=== PATIENT | male | born 1995 | race Caucasian/White ===

== ENCOUNTER 2024-06-03 09:20 | Outpatient (AMB) | payer OTHER, SELFPAY ==
[2024-06-03 09:24] VITALS: BP 114/80; PULSE 74; O2SAT 98; BMI 27.5
--- NOTE | 2024-06-03 09:24 | MHC.PC.OV ---
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 Accompanied by: Self / Same As Patient Allergies No Known Allergies Allergy (Verified 06/03/24 10:01) Medication List - Last Reconciled 06/03/24 by LENNY Ness No Known Home Meds Tobacco use date assessed: 06/03/24 Dental Screening Dental Screen Date: 06/03/24 Did you have a dental visit in the last 12 months?: No Did you have a dental problem in the last 6 months where you did not have access to dental care?: No Was dental information given to patient?: Patient has dentist HPI ROOMS DIRECTOR // PE Request HPI Details Previous PCP: Kathryn at office in [facility] Last visit: long time Last PE: long time Specialist: used to see ENT, cardiology OBGYN: n/a Past medical history: chronic ear infection-used to have ear tubes, but not sure if they fell out or not, Heart murmur-reports that this runs in the family, his mother and first cousin both have heart murmur, cleft palate, hx of hernia when he was born (he just has a scar now) Medications: Family HX: Parkinson paternal grandfather, maternal grandfather passed a way from pancreatic ca, heart murmur maternal grandfather Problem: Patient reports that he thinks that his regular headaches are turning into migraines He thinks that his headache is causing him to have a nosebleed intermittently Patient also reports that his headaches are stress related, usually the pain is on both side of his forehead Reports that this pain could linger throughout the day and goes away when things are calm down He reports that it does not affect his eyesight, but he recalls once the headache was so bad that it felt like the room was spinning He denies nausea, vomiting, photophobia or phonophobia The patient denies any treatment, except relaxation The patient was encouraged to try ibuprofen 800 mg p.r.n. but he was cautioned in doing so due to his reported intermittent nosebleeds. 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 the foundation of his stress Discussed with patient about talking to someone a about his increased stress-reports that he has been dealing with this on his own and he is not quite sure about talking to anyone just yet Tightening in his chest area, chest feels heavy, this happen about a month ago, reports that he was not stressed at the time, this went away briefly He also reports mild difficulty in breathing during the moment Denies heart palpitation, lightheadedness, nausea or vomiting, radiation of pain, or diaphoresis-we will get a EKG for baseline/further evaluate Works at a dog [email or web address]: shooting pain from wrist area to fingers, negative tinel and phalen exam, his hands get exhausted at the end of the day. The patient reports that he would like to deal with this has a naturally as possible and is not inclined for any surgical intervention at this time. We will get a EMG/NCS to further evaluate [facility] Medical History (Updated 06/04/24 @ 23:19 by LENNY Ness) Chronic ear infection Abdominal hernia Cleft palate Heart murmur Surgical History (Updated 06/04/24 @ 14:32 by LENNY Ness) History of placement of ear tubes Family History (Updated 06/04/24 @ 23:16 by LENNY Ness) Paternal Grandfather Parkinsons disease Maternal Grandfather Pancreatic cancer Heart murmur Social History Housing: House Patient Tobacco Use Status: Current someday Tobacco user e-Cigarette/Vaping Use: Never Used Second Hand Smoke Exposure: Yes service: No Current occupational status: employed Current occupational exposures/hazards: No Cognitive needs: No Hearing needs: No Vision needs: No Questionnaire PHQ-9 Over the last 2 weeks, how often have you been bothered by any of the following problems? 1. Little interest or pleasure in doing things: several days 2. Feeling down, depressed, or hopeless: not at all 3. Trouble falling or staying asleep, or sleeping too much: not at all 4. Feeling tired or having little energy: several days 5. Poor appetite or overeating: several days 6. Feeling bad about yourself - or that you are a failure or have let yourself or your family down: several days 7. Trouble concentrating on things, such as reading the newspaper or watching television: not at all 8. Moving or speaking so slowly that other people could have noticed. Or the opposite - being so fidgety or restless that you have been moving around a lot more than usual: not at all 9. Thoughts that you would be better off or of hurting yourself in some way: not at all Total score: 4 Depression Screening Interpretation: Positive Depression Screening Done: Yes 67676 - PHQ-9 Billing: Yes Source: Developed by Drs. Lucio Joseph, Jodie Nichole, Kirk Nelson and colleagues, with an educational yannick from [employer]. Thrive Questionnaire Date Thrive assessed: 06/03/24 I am a: Patient What is your living situation today?: I have a steady place to live Within the past 12 months, did the food you bought not last and you didn't have the money to get more?: Never true Within the past 12 months, did you worry whether your food would run out before you got money to buy more?: Never true Do you have trouble paying for medicines?: No Do you have trouble getting transportation to medical appointments?: No Do you have trouble paying your heating and electricity bill?: No Do you have trouble taking care of your child, family member or friend?: No Do you have trouble with day-to-day activities such as bathing, preparing meals, shopping, managing finances, etc.?: No Are you currently unemployed and looking for a job?: No Are you interested in more education?: No Please select the resources that you would like help with: None Currently or been in a relationship where the following occur: No concerns reported THRIVE Score: 0 AUDIT C Alcohol Use Questionnaire (AUDIT-C) 1. How often do you have a drink containing alcohol?: Monthly or less 2. How many drinks containing alcohol do you have on a typical day when you are drinking?: 1 or 2 3. How often do you have six or more drinks on one occasion?: Never Total Score: 1 PATRICK-7 AMB Questionnaire PATRICK-7 Date PATRICK - 7 assessed: 06/03/24 Feeling nervous, anxious, or on edge: 1 = Several days Not being able to stop or control worryin = Not at all Worrying too much about different things: 1 = Several days Trouble relaxin = Several days Being so restless that it is hard to sit still: 0 = Not at all Becoming easily annoyed or irritable: 1 = Several days Feeling afraid as if something awful might happen: 0 = Not at all Total PATRICK-7 score (0-4 normal; 5-9 mild; 10-14 moderate; 15-21 severe): 4 Source: Developed by Drs. Lucio Joseph, Jodie Nichole, Kirk Nelson and colleagues, with an educational yannick from [employer]. PATRICK-7 Assessment Billing PATRICK-7 Assessment Tool: PATRICK-7 Assessment 36394 Review of Systems Const Reports headache(s) Eyes Denies loss of vision ENT Denies vertigo, Denies dizziness, Reports headache(s) and Denies sore throat Card Reports chest pain (reports that it is more light chest tightness), Denies leg edema, Denies lightheadedness and Reports other (reports hx of heart murmur) Resp Denies cough, Denies hemoptysis and Denies wheezing GI Denies abdominal pain, Denies melena, Denies constipation, Denies diarrhea, Reports nausea (intermittently dry heaving until vomiting bile at times) and Reports vomiting (infrequently when he is stressed out) Denies dysuria, Denies urinary frequency and Denies urinary urgency Musc Denies arthralgias, Denies joint swelling, Denies numbness, Denies tingling and Reports other (reports shooting pain from wrist to finger of both hands) Neuro Denies Abnormal speech present, Denies behavioral changes, Denies vertigo, Denies dizziness, Reports headache(s), Denies loss of vision, Denies memory loss, Denies numbness and Denies tingling Psych Reports anxiety (reports that the stress cause him to dry hive and vomit intermittently), Denies behavioral changes, Denies depression, Denies memory loss, Reports panic attacks (reports that he is not sure if it panic attacks ) and Reports other Chi/Lymph Denies easy bleeding and Denies easy bruising Aller/Immun Denies wheezing Physical exam (Primary Care) Vital Signs: Last Vital Signs Pulse 74 06/03/24 09:24 BP 114/80 06/03/24 09:24 Pulse Ox 98 06/03/24 09:24 Oxygen Delivery Method Room Air 06/03/24 09:24 BMI result Body Mass Index 27.5 Tobacco/Smoking Status: Tobacco use Status Tobacco use date assessed 06/03/24 06/03/24 09:31 Patient Tobacco Use Status Current someday Tobacco 06/03/24 09:31 e-Cigarette/Vaping Use Never Used 06/03/24 09:31 PHQ-9: PHQ-9 Score PHQ-9: Total score 4 06/04/24 23:04 Depression Screening Interpretation: Positive Thrive Assessment: Date of Thrive Assessment Date Thrive assessed 06/03/24 06/03/24 09:31 Currently or been in a relationship where the following occur: No concerns reported Const General: healthy appearing, no acute distress, alert and awake Nutritional Appearance: well nourished Orientation/consciousness: oriented to person, oriented to place and oriented to time HENMT Ears: TM's normal bilaterally General nose exam: Normal nasal mucous membranes and turbinates present Eyes Conjunctivae: conjunctivae normal Sclerae: sclerae normal Pupils: Equal, round and reactive pupils present Neck Neck: Yes no lymphadenopathy and Yes no JVD Thyroid: Thyroid normal Carotids: no bruits Chest Chest palpation & inspection: normal inspection of the chest Resp Effort & Inspection: normal respiratory effort and not tachypneic Auscultation: no crackles, no rales, no rhonchi and no wheezes Cardio Rate: regular rate Rhythm: regular rhythm Heart sounds: Murmur heart sound present (soft) systolic and normal S1 and S2 GI Palpation (GI): Soft to palpation, nontender, no hepatomegaly and no splenomegaly Auscultation: normal bowel sounds Skin General skin exam: no rashes or lesions noted and dry skin Neuro General: oriented to person, oriented to place and oriented to time Cranial nerves: Yes Equal, round and reactive pupils present Speech: No Abnormal speech present Gait exam (Neuro): Normal gait present Motor exam (neuro): no tremor noted Extrem Right upper extremity: full ROM Left upper extremity: full ROM Right lower extremity: full ROM; no edema Left lower extremity: full ROM; no edema Psych Mental Status: mental status grossly normal Speech and movement: Normal speech and movement present Affect: normal affect Attitude: cooperative Thought process: Normal thought process present Coding Level of Care Code New Pt Level 4 (40614) Diagnoses Heart murmur R01.1 Pain in both hands M79.641; M79.642 Laterality: bilateral Feeling stressed out F43.9 Additional Codes PHQ-9 - 86306 - PHQ-9 Billing: Yes ([id number]) PATRICK-7 Assessment Billing - PATRICK-7 Assessment Tool: PATRICK-7 Assessment 18245 ([id number]) Time Spent (min) 42 Assessment & Plan Assessment & Plan (1) Heart murmur: Code(s): R01.1 - Cardiac murmur, unspecified Category: Medical Plan: Patient reports a history of heart murmur. Reports that his mother and 1st cousin has a murmur. He denies denies chest pain or heart palpitation. Will order an EKG for baseline and to further evaluate. (2) Pain in unspecified hand: Code(s): M79.643 - Pain in unspecified hand Category: Medical Qualifiers: Laterality: bilateral Qualified Code(s): M79.641 - Pain in right hand; M79.642 - Pain in left hand Plan: The patient reports shooting pain from bilateral wrist into fingers; into first two fingers and at times into the pinkies. He would like to deal with this as natural as possible, and his not interested into any surgical intervention at this time. Negative phalen and tinel tests on exam. 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 Reports that he worries about things going wrong throughout the day and usually feels better as the day progresses. However, he is not interested in speaking to anyone about this at this time. Orders: Orders Comprehensive [place]. Panel Fast 06/03/24 M79.2 - Neuralgia and neuritis, unspecified, R51.9 - Headache, unspecified, Z00.00 - Encounter for general adult medical examination without abnormal findings UA CC w/rflx Micro + Cult 06/03/24 M79.2 - Neuralgia and neuritis, unspecified, R51.9 - Headache, unspecified, Z00.00 - Encounter for general adult medical examination without abnormal findings Lipid Panel 06/03/24 M79.2 - Neuralgia and neuritis, unspecified, R51.9 - Headache, unspecified, Z00.00 - Encounter for general adult medical examination without abnormal findings Magnesium 06/03/24 M79.2 - Neuralgia and neuritis, unspecified, R51.9 - Headache, unspecified, Z00.00 - Encounter for general adult medical examination without abnormal findings Glucose Fasting 06/03/24 M79.2 - Neuralgia and neuritis, unspecified, R51.9 - Headache, unspecified, Z00.00 - Encounter for general adult medical examination without abnormal findings ECG 12 lead EKG 06/03/24 R07.89 - Other chest pain Complete Blood Count Auto Diff 06/03/24 M79.2 - Neuralgia and neuritis, unspecified, R51.9 - Headache, unspecified, Z00.00 - Encounter for general adult medical examination without abnormal findings Vitamin D 25-OH Total 06/03/24 M79.2 - Neuralgia and neuritis, unspecified, R51.9 - Headache, unspecified, Z00.00 - Encounter for general adult medical examination without abnormal findings TSH reflex Free T4 06/03/24 M79.2 - Neuralgia and neuritis, unspecified, R51.9 - Headache, unspecified, Z00.00 - Encounter for general adult medical examination without abnormal findings Vitamin B12 and Folate 06/03/24 M79.2 - Neuralgia and neuritis, unspecified, R51.9 - Headache, unspecified, Z00.00 - Encounter for general adult medical examination without abnormal findings NE nerve conduction velocity 06/04/24 M79.641 - Pain in right hand, M79.642 - Pain in left hand NE electromyogram (EMG) 06/04/24 M79.641 - Pain in right hand, M79.642 - Pain in left hand
--- OUTSIDE RECORDS SUMMARY | 2024-06-03 09:59 | XMS_ITS | Data Portability ---
Author Organization [facility] [id number] Address [address] [place] [address] Assessment No assessment recorded. Plan of Treatment Reminders Order Date Submit Date Provider Last Modified By Organization Details Last Modified Time Details Appointments None recorded. Lab None recorded. Referral None recorded. Procedures None recorded. Surgeries None recorded. Imaging None recorded. Medication Orders cephalexin 500 mg capsule 2023 024 [id number], [address] [place], [address], 4 10:51:39 Patient TargetsNo targets recorded. Patient InstructionsNo instructions recorded. Reason for Referral None Reported. Problems Name Problem SNOMED Code Status Onset Date Resolution Date Notes Provider Name and Address Organization Details Recorded Time Cellulitis of left forearm [id number] 9106 Active 2023 Huy Moise NP [address] , [place], [address] , [facility] 4 10:51:04 Problem Notes None recorded. Medical Equipment None Reported. Allergies No known drug allergies Medications Name Sig Start Date Stop Date Status Note LastModified by Organization Details LastModified Time cephalexin 500 mg capsule TAKE 1 CAPSULE BY MOUTH EVERY 8 HOURS WITH MEAL(S) FOR 7 DAYS, FOR SKIN INFECTION . active Not Available Not Available No t Available Vitals Date Recorded Body height Body mass index (BMI) Body weight Oxygen saturation Oxygen saturation in Arterial blood by Pulse oximetry Heart rate Body temperature Systolic blood pressure Diastolic blood pressure Provider Name and Address Organization Details Last Updated DateTime 4 187.96 cm 0.6 kg/m2 2267.96 g 100 % 100 % 68 /min 97.9 [degF] 127 mm[Hg] 77 mm[Hg] Kathy Lovelacen PA - [facility] 10:49:09 Social History Question Answer Notes LastModified by Organizat ion Details LastModified Time Are You Currently Employed? Yes Information not available 08/06/2023 Which Illicit Or Recreational Drugs Have You Used? Marijuana Information not available 08/06/2023 Have You Had A Flu Shot This Season? No Information no t available 08/06/2023 If No, Would You Like A Flu Shot Today? No Information not available 08/06/2023 Have You Had Direct Contact, Or Contact During Intimacy, With Monkeypox Rash, Scabs, Or Body Fluids From A Person With Monkeypox? No Information not available 08/06/2023 What Is Your Relationship Status? Single Information not available 08/06/2023 Do You Use Any Illicit Or Recreational Drugs? Yes Information not available 08/06/2023 Have You Recently Traveled Abroad? No Information not available 08/06/2023 Do You Or Have You Ever Used Any Other Forms Of Tobacco Or Nicotine? No Information not available 08/06/2023 Sex: Unknown Functional Status None recorded. Mental Status None recorded. Family History Nothing Reported. Medical History No medical history recorded. Past Encounters Encounter ID Performer Location Encounter Start Date Encounter Closed Date Diagnosis/Indication Diagnosis SNOMED-CT Code Diagnosis ICD10 Code Diagnosis Note [id number] [address] [address] 06/19/2020 08:18:18 06/19/2020 10:21:26 [id number] [address] 08/19/2016 18:30:01 08/19/2016 18:48:25 [id number] [place] [address] [address] 08/06/2023 10:24:21 08/06/2023 13:18:04 Cellulitis of left forearm [id number] L03.114 Based on your presentati on and exam today, I am diagnosing you with cellulitis . I am going to prescribe you and antibiotic to cover this infection. Please be sure to complete the full course of this antibiotic to prevent antibiotic resistance . I suggest with any antibiotic that you take Florastor or another probiotic. This help re-coloniz e you body with the good bacteria. It might take 3-4 days for the antibiotic to start working - so don't panic if your infection gradually worsens over the next 48 hours before it gets better. The following are my recommenda tions to help you feel better and aid in resolving this infection: 1. No creams or lotions on the affected area - so no Antibiotic ointment.2 . Warm Epsen Salt Soaks - 2 or 3 x daily. This will help move the infection to the surface of the skin.3. Take Ibuprofen or Tylenol if you do not have any allergies to these medication s. If you take a blood thinner you should not take NSAIDS like Ibuprofen. These medication will help with the inflammati on in your respirator y tract which should help the cough.4. Do no squeeze or pick at the area. This can worsen the infection. The following are warning signs to look out for that would suggest the infection is worsening. This would mean you should be seen again:1. Fever > 100.52. Redness is spreading to double the size in 24 hours3. Increased swelling and pain.4. Inability to move a joint5. Swollen lymph nodes that are tender Thank you for using [facility] today, please don't hesitate to call or reach out to us if you have any questions or concerns. Health Concerns Section Related Observation LastModified by Organization Detai ls LastModified Time None Recorded Concern Status LastModified by Organization Details LastModified Time None Recorded Advance Directives Directive None Recorded Payers Encounter Date Sequence Insurance Name Policy Number Policy Hopson Covered Member ID Hopson Member ID Guarantor Name 08/19/2016 1 [facility] [id number] Haresh Mayes [id number] Juan Luis Mayes 06/19/2020 1 [facility] [id number] Haresh Mayes [id number] Juan Luis Mayes 08/06/2023 1 [facility] [id number] Juan Luis Mayes [id number] Juan Luis Mayes Notes Date Note Type Note Provider Name and Address Organization Details Recorded Time 08/06/2023 text/html Skin Redness UCReported bypatient.Locatio n:left arm; elbow; small 2x 2 cm indurated area anterior of left forearm . developing cellulitis . insect bite vs abscess vs folliculitis. Quality:painful;e rythematous;raise d;warm Severity:moderate ;worsening Duration:2 days Onset:gradual onset Alleviating factors:nothing gives relief Aggravating factors:nothing makes it worse Symptoms:no fever; no nausea; no vomiting;swelling Huy Moise NP [address] [place], [address], [place] - [facility] 08/06/2023 10:52:05
== END 2024-06-03 10:35 | disposition home or self-care (01) ==
PROVIDERS: PCP Internal Medicine
DX: R01.1 Cardiac murmur, unspecified (principal); M79.641 Pain in right hand; M79.642 Pain in left hand; F43.9 Reaction to severe stress, unspecified

== ENCOUNTER 2024-06-03 09:20 | Outpatient (REF) | payer OTHER, SELFPAY ==
--- NOTE | 2024-06-03 10:46 | ECG_ITS ---
Test Reason : chest pain Blood Pressure : */* mmHG Vent. Rate : 60 BPM Atrial Rate : 60 BPM P-R Int : 158 ms QRS Dur : 102 ms QT Int : 410 ms P-R-T Axes : 47 19 26 degrees QTcB Int : 410 ms Artifact in tracing Normal sinus rhythm Normal ECG No previous ECGs available Referred By: Mao Hernandez Electronically Signed By: PAT LOPEZ
[2024-06-03 10:52] LABS: MANUAL DIFF FLAG NO
[2024-06-03 11:41] LABS: Basophils Absolute Auto 0.1 X10*3/uL (0.0-0.2); Basophils Percent Auto 1.6 % (0-2); Eosinophils Absolute Auto 0.4 X10*3/uL (0.0-0.4); Eosinophils Percent Auto 4.7 % (0-4); Hematocrit 46.6 % (42.0-52.0); Hemoglobin 15.4 g/dl (14.0-18.0); Imm Gran Abs Auto 0.02 X10*3/uL (0.00-0.03); Imm Gran Pct Auto 0.3 % (0.0-0.4); Lymphocytes Absolute Auto 2.3 X10*3/uL (1.2-4.9); Lymphocytes Percent Auto 29.7 % (20-40); Mean Corpuscular Hemoglobin 28.6 pg (27.0-33.0); Mean Corpuscular Volume 86.5 fL (80.0-98.0); Mean Platelet Volume 10.8 fL (9.4-12.4); Monocytes Absolute Auto 0.7 X10*3/uL (0.1-1.2); Monocytes Percent Auto 8.4 % (2-11); Neutrophils Absolute Auto 4.3 x10*3/uL (2.0-8.3); Neutrophils Percent Auto 55.3 % (45-73); Platelet Count 263 X10*3/uL (160-400); Red Blood Count 5.39 X10*6/uL (4.60-5.80); White Blood Count 7.7 X10*3/uL (4.8-10.8)
[2024-06-03 13:02] LABS: Alanine Aminotransferase 22 U/L (0-40); Albumin Level 4.8 g/dL (3.5-5.0); Alkaline Phosphatase 73 U/L (39-117); Anion Gap 14 (12-20); Aspartate Amino Transferase 22 U/L (5-37); Bilirubin Total 0.9 mg/dL (0.0-1.0); Blood Urea Nitrogen 16 mg/dL (9-16); Calcium 9.9 mg/dL (8.4-10.2); Carbon Dioxide 29 mmol/L (22-29); Chloride 105 mmol/L (96-108); Cholesterol 182 mg/dL (<200); Estimated Glomerular Filt Rate > 60; Glucose Fasting 92 mg/dL (60-99); HDL Cholesterol 67 mg/dL (>40); LDL Cholesterol Calculated 107 mg/dL (<100); Magnesium 2.1 mg/dL (1.6-2.6); Potassium 4.5 mmol/L (3.3-5.1); Sodium 143 mmol/L (135-145); TSH reflex Free T4 1.32 uIU/mL (0.32-4.0); Total Protein 8.1 g/dL (6.5-8.0); Triglycerides 40 mg/dL (<150); Vitamin D 25-OH Total 21.7 ng/mL (>30)
[2024-06-03 13:11] LABS: Folate 10.8 ng/mL (> or = 4.0); Vitamin B12 514 pg/mL (200-900)
== END 2024-06-03 09:21 | disposition home or self-care (01) ==
LOC: HO.LAB 09:20
PROVIDERS: PCP Internal Medicine
DX: Z00.00 Encounter for general adult medical examination without abnormal findings (principal); M79.2 Neuralgia and neuritis, unspecified; R51.9 Headache, unspecified; R07.89 Other chest pain; R01.1 Cardiac murmur, unspecified; M79.641 Pain in right hand; M79.642 Pain in left hand; F43.9 Reaction to severe stress, unspecified
CPT/HCPCS: 36415; 80053; 80061; 82306; 82607; 82746; 83735; 84443; 85025; 93005; 96127; 99202

== ENCOUNTER → 2024-06-03 10:46 | Outpatient (BNV) | payer OTHER, SELFPAY | PROVIDERS: PCP Internal Medicine; Visit Provider Internal Medicine | DX: R07.9 Chest pain, unspecified (principal) | CPT/HCPCS: 93010 ==

== ENCOUNTER 2024-07-15 10:47 | Outpatient (AMB) | payer OTHER, SELFPAY ==
--- NOTE | 2024-07-15 10:58 | A.OFFPC_ITS ---
Vital Signs 07/15/24 10:59 Height 6 ft 2 in Weight 219 lb BMI 28.1 BP 110/64 Blood Pressure Location Lt brachial Position Sitting Pulse 71 Pulse Source Pulse Oximeter Temp 97.1 F Temp Source Temporal Artery Scan Pulse Oximetry (%) 98 Oxygen Delivery Method Room Air Intake Visit Reasons: ANNUAL Intake Note: Patient is here today for a physical. 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 He reports concerns related to nerve-related symptoms and general health maintenance. His nerve-related symptoms include intermittent shooting pain from the left po sterior wrist to the back of hand, recurring over two days. EMG was ordered on previous visit and the patient has upcoming appt to get this done. He reports having family members with cancer diagnoses, including colorectal cancer in a maternal grandfather and prostate cancer. His family history also includes Parkinson's disease in his paternal grandfather. The patient wants to know if he would be a candidate for colonoscopy screening at his age. The patient experiences headaches and has been advised to take Magnesium oxide 400 mg at bedtime and vitamin B2 400 mg daily on prior visit the patient has not pick these up as yet. 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 The patient was also encouraged to take vitamin B12 for tingling sensation in his hands / fingers intermittently. No recent dental examinations or eye exams were mentioned, and he recalls prior tetanus vaccination occurring over ten years ago. tetanus shot was given in office to day and he will look into making appointment for dental and examination. [facility] Medical History (Updated 07/15/24 @ 20:40 by LENNY Ness) Chronic ear infection Abdominal hernia Cleft palate Heart murmur Surgical History History of placement of ear tubes Family History Paternal Grandfather Parkinsons disease Maternal Grandfather Pancreatic cancer Heart murmur Social History Housing: House Alcohol intake: never Patient Tobacco Use Status: Former Tobacco user e-Cigarette/Vaping Use: Never Used Second Hand Smoke Exposure: Yes Substance Use Type: Marijuana service: No Current occupational status: employed Current occupational exposures/hazards: No Cognitive needs: No Hearing needs: No Vision needs: No Questionnaire Thrive Questionnaire Date Thrive assessed: 05/27/24 I am a: Patient What is your living situation today?: I have a steady place to live Within the past 12 months, did the food you bought not last and you didn't have the money to get more?: Never true Within the past 12 months, did you worry whether your food would run out before you got money to buy more?: Never true Do you have trouble paying for medicines?: No Do you have trouble getting transportation to medical appointments?: No Do you have trouble paying your heating and electricity bill?: No Do you have trouble taking care of your child, family member or friend?: No Do you have trouble with day-to-day activities such as bathing, preparing meals, shopping, managing finances, etc.?: No Are you currently unemployed and looking for a job?: No Are you interested in more education?: No Please select the resources that you would like help with: None Currently or been in a relationship where the following occur: No concerns reported THRIVE Score: 0 PATRICK-7 AMB Questionnaire PATRICK-7 Date PATRICK - 7 assessed: 06/03/24 Source: Developed by Drs. Lucio Joseph, Jodie Nichole, Kirk Nelson and colleagues, with an educational yannick from [employer] Review of Systems Const Details: - Neurologic: Reports shooting pain from left wrist to back of ear - Musculoskeletal: Denies joint pain, reports shooting pain - Respiratory: Denies shortness of breath - Cardiovascular: Denies chest pain - Gastrointestinal: Denies abdominal pain, reports regular bowel movements - Genitourinary: Reports normal urination - Head, Eyes, Ears, Nose, Throat: Denies new vision problems; due for eye exam - General: Reports stress and anxiety Reports headache(s) (On and off) Eyes Denies loss of vision ENT Denies vertigo, Denies dizziness, Reports headache(s) (On and off) and Denies sore throat Card Denies chest pain, Denies leg edema and Denies lightheadedness Resp Denies cough, Denies hemoptysis and Denies wheezing GI Denies abdominal pain, Denies melena, Denies constipation, Denies diarrhea and Denies vomiting Denies dysuria, Denies urinary frequency, Denies urinary urgency and Reports other (Reports small lump felt between scrotum and the prostate area-resolved) Musc Reports arthralgias (Shooting pain in bilateral risk, down in hands and fingers, EMG scheduled), Denies joint swelling, Denies numbness and Denies tingling Neuro Denies Abnormal speech present, Denies behavioral changes, Denies vertigo, Denies dizziness, Reports headache(s) (On and off), Denies loss of vision, Denies memory loss, Denies numbness and Denies tingling Psych Reports anxiety, Denies behavioral changes, Denies depression, Denies memory loss and Denies panic attacks Chi/Lymph Denies easy bleeding and Denies easy bruising Aller/Immun Denies wheezing Physical exam (Primary Care) Vital Signs: Last Vital Signs Temp 97.1 F 07/15/24 10:59 Pulse 71 07/15/24 10:59 BP 110/64 07/15/24 10:59 Pulse Ox 98 07/15/24 10:59 Oxygen Delivery Method Room Air 07/15/24 10:59 BMI result Body Mass Index 28.1 Tobacco/Smoking Status: Tobacco use Status Tobacco use date assessed 07/15/24 07/15/24 11:03 Patient Tobacco Use Status Former Tobacco user 07/15/24 11:03 e-Cigarette/Vaping Use Never Used 07/15/24 11:03 Thrive Assessment: Date of Thrive Assessment Date Thrive assessed 05/27/24 07/15/24 11:03 Currently or been in a relationship where the following occur: No concerns reported Const General: healthy appearing, no acute distress, alert and awake Nutritional Appearance: well nourished Orientation/consciousness: oriented to person, oriented to place and oriented to time HENMT Ears: TM's normal bilaterally General nose exam: Normal nasal mucous membranes and turbinates present Eyes Conjunctivae: conjunctivae normal Sclerae: sclerae normal Pupils: Equal, round and reactive pupils present EOM: Nystagmus present Neck Neck: Yes no lymphadenopathy and Yes no JVD Thyroid: Thyroid normal Carotids: no bruits Resp Effort & Inspection: normal respiratory effort and not tachypneic Auscultation: no crackles, no rales, no rhonchi and no wheezes Cardio Rate: regular rate Rhythm: regular rhythm Heart sounds: Murmur heart sound present systolic and normal S1 and S2 GI Palpation (GI): Soft to palpation, nontender, no hepatomegaly and no splenomegaly Auscultation: normal bowel sounds General: Yes no CVA tenderness Back/Spine/Pelvis Back: no CVA tenderness Skin General skin exam: no rashes or lesions noted and dry skin Neuro General: oriented to person, oriented to place and oriented to time Cranial nerves: Yes Equal, round and reactive pupils present and Yes Nystagmus present horizontal and within normal field of vision Speech: No Abnormal speech present Gait exam (Neuro): Normal gait present Motor exam (neuro): no tremor noted Extrem Right upper extremity: full ROM Left upper extremity: full ROM Right lower extremity: full ROM; no edema Left lower extremity: full ROM; no edema Psych Mental Status: mental status grossly normal Speech and movement: Normal speech and movement present Affect: normal affect Attitude: cooperative Thought process: Normal thought process present Immunizations Boostrix Tdap 2.5 Lf unit-8 mcg-5 Lf/0.5 mL intramuscular syringe Performing Provider: LENNY Ness [facility] Administered by: VIKRAM Patino on 07/15/24 11:23 Dose Route Admin Location Dispensed Lot Number Expiration Date [facility] Rehabilitator 0.5 mL IM Right Deltoid 0.5 mL [id number] 11/20/26 [id number] [employer] VIS Given Date VIS Provided VIS Publication Date 04/26/24 Single Vaccine 20 Eligibility Eligibility Date Funding Source Not [facility] Eligible 07/15/24 Private Results Reviewed Results Reviewed: Laboratory Tests 06/03/24 10:51 WBC 7.7 RBC 5.39 Hgb 15.4 Hct 46.6 MCV 86.5 MCH 28.6 MCHC 33.0 RDW 12.0 Plt Count 263 Sodium 143 Potassium 4.5 Chloride 105 Carbon Dioxide 29 Anion Gap 14 BUN 16 Creatinine 0.76 Estimated GFR > 60 Fasting Glucose 92 Magnesium 2.1 Total Bilirubin 0.9 AST 22 ALT 22 Alkaline Phosphatase 73 Albumin 4.8 Triglycerides 40 Cholesterol 182 LDL Cholesterol, Calc 107 H HDL Cholesterol 67 Vitamin B12 514 25-OH Vitamin D Total 21.7 L Folate 10.8 TSH 1.32 Coding Level of Care Code Est Pt Prev Care 18-39y(20803) Diagnoses Annual physical exam Z00.00 Nerve pain M79.2 Chronic nonintractable headache, unspecified headache type R51.9; G89.29 Headache type: unspecified Headache chronicity pattern: chronic headache Intractability: not intractable Vitamin D deficiency E55.9 Feeling stressed out F43.9 Pain in both hands M79.641; M79.642 Laterality: bilateral Time Spent (min) 39 Assessment & Plan Assessment & Plan (1) Annual physical exam: Code(s): Z00.00 - Encounter for general adult medical examination without abnormal findings Category: Medical (2) Nerve pain: Code(s): M79.2 - Neuralgia and neuritis, unspecified Category: Medical (3) Headache: Code(s): R51.9 - Headache, unspecified Category: Medical Qualifiers: Headache type: unspecified Headache chronicity pattern: chronic headache Intractability: not intractable Qualified Code(s): R51.9 - Headache, unspecified; G89.29 - Other chronic pain (4) Vitamin D deficiency: Code(s): E55.9 - Vitamin D deficiency, unspecified Category: Medical (5) Feeling stressed out: Code(s): F43.9 - Reaction to severe stress, unspecified Category: Medical (6) Pain in unspecified hand: Code(s): M79.643 - Pain in unspecified hand Category: Medical Qualifiers: Laterality: bilateral Qualified Code(s): M79.641 - Pain in right hand; M79.642 - Pain in left hand Plan The patient is scheduled for a nerve conduction study to assess for potential neuropathies. Recommendations were given for Vitamin B2 and magnesium intake for headaches, and dietary changes and activity as tolerated to manage elevated LDL cholesterol. Vitamin D3 supplementation was advised due to low levels. Familial cancer history discussed for future monitoring without current intervention due to age. Will reach out to GI to see if the patient is a candidate for early colonoscopy screening. Stress management was encouraged, and lifestyle modifications suggested for disease risk reduction. Encouraged CBT, the patient wants to hold off at this time. Patient was informed and verbally consented to the use of an ambient scribe for clinic note documentation during this visit. Orders: Orders TDaP Immunization Today Z23 - Encounter for immunization Comprehensive [place]. Panel Fast 1 Year E55.9 - Vitamin D deficiency, unspecified, R01.1 - Cardiac murmur, unspecified, R07.89 - Other chest pain, R51.9 - Headache, unspecified, Z00.00 - Encounter for general adult medical examination without abnormal findings UA CC w/rflx Micro + Cult 1 Year E55.9 - Vitamin D deficiency, unspecified, R01.1 - Cardiac murmur, unspecified, R07.89 - Other chest pain, R51.9 - Headache, unspecified, Z00.00 - Encounter for general adult medical examination without abnormal findings Glucose Fasting 1 Year E55.9 - Vitamin D deficiency, unspecified, R01.1 - Cardiac murmur, unspecified, R07.89 - Other chest pain, R51.9 - Headache, unspecified, Z00.00 - Encounter for general adult medical examination without abnormal findings Lipid Panel 1 Year E55.9 - Vitamin D deficiency, unspecified, R01.1 - Cardiac murmur, unspecified, R07.89 - Other chest pain, R51.9 - Headache, unspecified, Z00.00 - Encounter for general adult medical examination without abnormal findings Complete Blood Count Auto Diff 1 Year E55.9 - Vitamin D deficiency, unspecif ied, R01.1 - Cardiac murmur, unspecified, R07.89 - Other chest pain, R51.9 - Headache, unspecified, Z00.00 - Encounter for general adult medical examination without abnormal findings Vitamin D 25-OH Total 1 Year E55.9 - Vitamin D deficiency, unspecified, R01.1 - Cardiac murmur, unspecified, R07.89 - Other chest pain, R51.9 - Headache, unspecified, Z00.00 - Encounter for general adult medical examination without abnormal findings TSH reflex Free T4 1 Year E55.9 - Vitamin D deficiency, unspecified, R01.1 - Cardiac murmur, unspecified, R07.89 - Other chest pain, R51.9 - Headache, unspecified, Z00.00 - Encounter for general adult medical examination without abnormal findings Patient Instructions: - Attend nerve conduction study as scheduled - Take Vitamin B2 in the morning and magnesium at bedtime - Start Vitamin D3 supplementation to address low levels - Follow dietary recommendations and activity as tolerated to decrease LDL cholesterol - Monitor nerve pain and report if it worsens - Consider stress management strategies, including potential therapy - Schedule regular dental and eye exams - Seek medical attention for any new or worsening symptoms
[2024-07-15 10:59] VITALS: BP 110/64; PULSE 71; TEMP 36.2; O2SAT 98; BMI 28.1
== END 2024-07-15 11:39 | disposition home or self-care (01) ==
LOC: HO.HMCH 10:48
PROVIDERS: PCP Internal Medicine
DX: Z00.00 Encounter for general adult medical examination without abnormal findings (principal); M79.2 Neuralgia and neuritis, unspecified; R51.9 Headache, unspecified; G89.29 Other chronic pain; E55.9 Vitamin D deficiency, unspecified; F43.9 Reaction to severe stress, unspecified; M79.641 Pain in right hand; M79.642 Pain in left hand; Z23 Encounter for immunization

== ENCOUNTER → 2024-07-15 10:47 | Outpatient (BNVA) | payer OTHER, SELFPAY | PROVIDERS: PCP Internal Medicine | DX: Z00.00 Encounter for general adult medical examination without abnormal findings (principal); Z23 Encounter for immunization; M79.2 Neuralgia and neuritis, unspecified; R51.9 Headache, unspecified; G89.29 Other chronic pain; E55.9 Vitamin D deficiency, unspecified; F43.9 Reaction to severe stress, unspecified; M79.641 Pain in right hand; M79.642 Pain in left hand | CPT/HCPCS: 90471; 90715; 99395 ==

== ENCOUNTER 2024-07-26 13:51 | Outpatient (REF) | payer OTHER, SELFPAY ==
--- NOTE | 2024-07-26 13:54 | EMG_ITS ---
Chief complaint: Bilateral wrist/hand pain, denies numbness Reason for referral: Evaluate for Carpal Tunnel Syndrome Referred by: Jennifer Hernandez Procedure done: Bilateral upper extremities NCS/EMG Precautions and/or limitations: None The limb temperature was monitored continuously and remained between 32-36 degrees C during the performance of the NCS. Nerve Conduction Studies Anti Sensory Summary Table ?Stim Site NR Onset (ms) Norm Onset (ms) Peak (ms) Norm Peak (ms) O-P Amp (?V) Norm O-P Amp Site1 Site2 Delta-0 (ms) Dist (cm) Alek (m/s) Norm Alek (m/s) Left Median Anti Sensory (2nd Digit) Wrist ? 2.6 3.4 <3.6 42.6 >10 Wrist 2nd Digit 2.6 14.0 54 Right Median Anti Sensory (2nd Digit) Wrist ? 2.7 3.6 <3.6 36.8 >10 Wrist 2nd Digit 2.7 14.0 52 Right Radial Anti Sensory (Thumb) Forearm ? 1.8 2.2 <3.1 19.3 Forearm Thumb 1.8 0.0 Left Ulnar Anti Sensory (5th Digit) Wrist ? 2.6 3.5 <3.7 23.2 >15.0 Wrist 5th Digit 2.6 14.0 54 Right Ulnar Anti Sensory (5th Digit) Wrist ? 2.2 3.1 <3.7 43.7 >15.0 Wrist 5th Digit 2.2 14.0 64 Motor Summary Table ?Stim Site NR Onset (ms) Norm Onset (ms) O-P Amp (mV) Norm O-P Amp iAmp (mV) Amp (1st) (%) Site1 Site2 Delta-0 (ms) Dist (cm) Alek (m/s) Norm Laek (m/s) Left Median Motor (Abd Poll Brev) Wrist ? 3.4 <3.9 6.9 >4.5 8.6 100.0 Elbow Wrist 4.8 26.5 55 >45 Elbow ? 8.2 6.7 8.6 97.1 Right Median Motor (Abd Poll Brev) Wrist ? 3.4 <3.9 5.1 >4.5 6.1 100.0 Elbow Wrist 4.7 26.0 55 >45 Elbow ? 8.1 5.0 6.1 98.0 Left Ulnar Motor (Abd Dig Minimi) Wrist ? 3.0 <3.0 8.2 >5 9.2 100.0 B Elbow Wrist 4.8 22.5 47 >45 B Elbow ? 7.8 7.3 8.4 89.0 A Elbow B Elbow 1.9 10.0 53 >45 A Elbow ? 9.7 6.9 8.2 84.1 Right Ulnar Motor (Abd Dig Minimi) Wrist ? 2.9 <3.0 11.8 >5 14.6 100.0 B Elbow Wrist 4.6 24.0 52 >45 B Elbow ? 7.5 11.4 14.4 96.6 A Elbow B Elbow 1.6 10.0 63 >45 A Elbow ? 9.1 10.8 13.7 91.5 EMG ?Side Muscle Nerve Root Ins Act Fibs Psw Amp Dur Poly Recrt Int Pat Comment Right 1stDorInt Ulnar C8-T1 Nml Nml Nml Nml Nml 0 Nml Complete Right FlexCarRad Median C6-7 Nml Nml Nml Nml Nml 0 Nml Complete Right Biceps Musculocut C5-6 Nml Nml Nml Nml Nml 0 Nml Complete Right Triceps Radial C6-7-8 Nml Nml Nml Nml Nml 0 Nml Complete Right Deltoid Axillary C5-6 Nml Nml Nml Nml Nml 0 Nml Complete Left 1stDorInt Ulnar C8-T1 Nml Nml Nml Nml Nml 0 Nml Complete Left FlexCarRad Median C6-7 Nml Nml Nml Nml Nml 0 Nml Complete Left Biceps Musculocut C5-6 Nml Nml Nml Nml Nml 0 Nml Complete Left Triceps Radial C6-7-8 Nml Nml Nml Nml Nml 0 Nml Complete Left Deltoid Axillary C5-6 Nml Nml Nml Nml Nml 0 Nml Complete FINDINGS: All motor and sensory nerves tested showed normal latencies, amplitudes and conduction velocities. Concentric needle EMG was performed in selected muscles of the bilateral upper extremities. Study did not reveal signs of electric abnormalities as shown in the table above. IMPRESSION: 1. This is a normal study. 2. There is no electrodiagnostic evidence for median neuropathy, ulnar neuropathy, brachial plexopathy, or cervical radiculopathy. Thank you for your kind referral. Windy Aldana MD, ESTHER Board Certified, [place] Board of [employer] and Rehabilitation (ABPMR) Board Certified, [place] Board of Electrodiagnostic Medicine (ABEM) CODIN [phone] x 2 MTDD
--- OUTSIDE RECORDS SUMMARY | 2024-07-26 14:11 | XMS_ITS | Data Portability ---
Author Organization [facility] [address] Address [address] [place] [address] Assessment No assessment recorded. Plan of Treatment Reminders Order Date Submit Date Provider Last Modified By Organization Details Last Modified Time Details Appointments None recorded. Lab None recorded. Referral None recorded. Procedures None recorded. Surgeries None recorded. Imaging None recorded. Medication Orders cephalexin 500 mg capsule 2023 024 [facility][id number], [address] [place], [address], 4 10:51:39 Patient TargetsNo targets recorded. Patient InstructionsNo instructions recorded. Reason for Referral None Reported. Problems Name Problem SNOMED Code Status Onset Date Resolution Date Notes Provider Name and Address Organization Details Recorded Time Cellulitis of left forearm [id number] 9106 Active 2023 Huy Moise NP [address] [place] , [place], [address] , [facility] 4 10:51:04 Problem [...] 97.9 [degF] 127 mm[Hg] 77 mm[Hg] Kathy PurnimaLauran PA - [facility] 10:49:09 Social History [...] SNOMED-CT Code Diagnosis ICD10 Code Diagnosis Note [id number] _[facility] [address] 06/19/2020 08:18:18 06/19/2020 10:21:26 [id number] [facility] [place] [address] [address] 08/19/2016 18:30:01 08/19/2016 18:48:25 [id number] [place] [address] [address] 08/06/2023 10:24:21 08/06/2023 13:18:04 Cellulitis of left forearm [id number] L03.114 Based on your presentati on and [...] that are tender Thank you for using [facility] today, please don't hesitate to call or [...] [place] Member ID Guarantor Name 08/19/2016 1 [facility] [id number] Haresh Mayes [id number] Juan Luis Mayes 06/19/2020 1 [facility] [id number] Haresh Mayes [id number] Juan Luis Mayes 08/06/2023 1 [facility] [id number] Juan Luis Mayes [id number] Juan Luis Mayes Notes Date Note Type [...] Moise NP [address] [place], [address], [place] - [facility] 08/06/2023 10:52:05
== END 2024-07-26 13:52 | disposition home or self-care (01) ==
LOC: HO.NEURO 13:51
PROVIDERS: PCP Internal Medicine
DX: M79.641 Pain in right hand (principal); M79.642 Pain in left hand
CPT/HCPCS: 95886; 95911

== ENCOUNTER → 2024-07-26 13:54 | Outpatient (BNV) | payer OTHER, SELFPAY | PROVIDERS: PCP Internal Medicine; Visit Provider Physical Medicine & Rehabilitation | DX: R20.0 Anesthesia of skin (principal); M25.531 Pain in right wrist; M25.532 Pain in left wrist; M79.641 Pain in right hand; M79.642 Pain in left hand | CPT/HCPCS: 95886; 95911 ==

== ENCOUNTER 2025-03-10 15:47 | Outpatient (AMB) | payer OTHER, SELFPAY ==
[2025-03-10 15:54] VITALS: BP 110/78; PULSE 93; O2SAT 97; BMI 28.4
--- NOTE | 2025-03-10 15:54 | MHC.PC.OV ---
Vital Signs 03/10/25 15:54 Height 6 ft 2 in Weight 221 lb BMI 28.4 BP 110/78 Blood Pressure Location Lt brachial Position Sitting Pulse 93 Pulse Source Pulse Oximeter Pulse Oximetry (%) 97 Oxygen Delivery Method Room Air Intake Visit Reasons: Nose bleed Drawing Supervisor Required: No Accompanied by: Self / Same As Patient Allergies No Known Allergies Allergy (Verified 03/10/25 16:12) Medication List - Last Reconciled 03/10/25 by Bill Saldivar MD No Known Home Meds Tobacco use date assessed: 03/10/25 Dental Screening Dental Screen Date: 03/10/25 Did you have a dental visit in the last 12 months?: No Did you have a dental problem in the last 6 months where you did not have access to dental care?: No Was dental information given to patient?: No HPI Nose bleed HPI Details - The patient is a 29-year-old male presenting with intermittent headaches associated with epistaxis. - He has a history of headaches for several years, but they have recently started to be associated with light nosebleeds this year, occurring 2-3 times. - The headaches occur every few months and are described as located in the frontal region. - He experienced one episode of a full-blown migraine with photosensitivity and phonosensitivity. - He occasionally takes Tylenol or aspirin with some relief a few hours later, but generally takes nothing for the headaches. - The headaches are not associated with any visual symptoms and have not required him to miss work, though he sometimes avoids his phone and bright lights as a precaution. - The patient also reports morning nausea for the past couple of weeks, occurring 3-4 times a week, which has led to dry heaving and one episode of vomiting bile. - The nausea occurs upon waking and dissipates around 11 a.m. without associated lingering stomach pain or issues with eating or drinking. - He has a history of fungal infection in both great toenails, which has reportedly worsened recently. - His past medical history includes ear problems in childhood which resolved after he stopped swimming, with no issues in the last decade. - His labs from May showed low vitamin D, and he has been taking magnesium and vitamin B supplements as well for the past few years. - Adds that he has been under a lot of stress and has been experiencing increased anxiety lately and is requesting for a referral for therapy and counseling [facility] Medical History (Updated 12/22/25 @ 04:15 by Bill Saldivar MD) Overweight (BMI 25.0-29.9) Chronic ear infection Abdominal hernia Cleft palate Heart murmur Surgical History History of placement of ear tubes Family History Paternal Grandfather Parkinsons disease Maternal Grandfather Pancreatic cancer Heart murmur Social History Housing: House Alcohol intake: never Patient Tobacco Use Status: Former Tobacco user e-Cigarette/Vaping Use: Never Used Second Hand Smoke Exposure: Yes Substance Use Type: Marijuana service: No Current occupational status: employed Current occupational exposures/hazards: No Cognitive needs: No Hearing needs: No Vision needs: No Questionnaire PHQ-9 Over the last 2 weeks, how often have you been bothered by any of the following problems? 1. Little interest or pleasure in doing things: several days 2. Feeling down, depressed, or hopeless: not at all 3. Trouble falling or staying asleep, or sleeping too much: not at all 4. Feeling tired or having little energy: several days 5. Poor appetite or overeating: several days 6. Feeling bad about yourself - or that you are a failure or have let yourself or your family down: several days 7. Trouble concentrating on things, such as reading the newspaper or watching television: not at all 8. Moving or speaking so slowly that other people could have noticed. Or the opposite - being so fidgety or restless that you have been moving around a lot more than usual: not at all 9. Thoughts that you would be better off or of hurting yourself in some way: not at all Total score: 4 Depression Screening Interpretation: Positive Depression Screening Follow-up: Follow-up Visit Requested Depression Screening Done: Yes [id number] - PHQ-9 Billing: Yes Source: Developed by Drs. Lucio Joseph, Jodie Nichole, Kirk Nelson and colleagues, with an educational yannick from [employer]. Thrive Questionnaire Date Thrive assessed: 03/10/25 I am a: Patient What is your living situation today?: I have a steady place to live Within the past 12 months, did the food you bought not last and you didn't have the money to get more?: Never true Within the past 12 months, did you worry whether your food would run out before you got money to buy more?: Never true Do you have trouble paying for medicines?: No Do you have trouble getting transportation to medical appointments?: No Do you have trouble paying your heating and electricity bill?: No Do you have trouble taking care of your child, family member or friend?: No Do you have trouble with day-to-day activities such as bathing, preparing meals, shopping, managing finances, etc.?: No Are you currently unemployed and looking for a job?: No Are you interested in more education?: No Please select the resources that you would like help with: None Currently or been in a relationship where the following occur: No concerns reported THRIVE Score: 0 AUDIT C Alcohol Use Questionnaire (AUDIT-C) 1. How often do you have a drink containing alcohol?: Monthly or less 2. How many drinks containing alcohol do you have on a typical day when you are drinking?: 1 or 2 3. How often do you have six or more drinks on one occasion?: Never Total Score: 1 Score Reviewed/Action Taken: Yes PATRICK-7 AMB Questionnaire PATRICK-7 Date PATRICK - 7 assessed: 03/10/25 Feeling nervous, anxious, or on edge: 0 = Not at all Not being able to stop or control worryin = Not at all Worrying too much about different things: 0 = Not at all Trouble relaxin = Not at all Being so restless that it is hard to sit still: 0 = Not at all Becoming easily annoyed or irritable: 0 = Not at all Feeling afraid as if something awful might happen: 0 = Not at all Total PATRICK-7 score (0-4 normal; 5-9 mild; 10-14 moderate; 15-21 severe): 0 Source: Developed by Drs. Lucio Joseph, Jodie Nichole, Kirk Nelson and colleagues, with an educational yannick from [employer]. Review of Systems Const Denies chills, Denies fatigue, Denies fever(s) and Reports headache(s) (on and off) Eyes Denies blurry vision and Denies photophobia ENT Denies dysphagia, Denies dizziness, Denies otalgia, Reports headache(s) (on and off), Reports epistaxis (at times - see HPI), Denies neck pain, Denies odynophagia and Denies sore throat Card Denies chest pain, Denies palpitations and Denies dyspnea Resp Denies chest congestion, Denies cough and Denies dyspnea GI Denies abdominal pain, Denies constipation, Denies dysphagia, Denies heartburn, Denies diarrhea, Reports nausea (on and off in the morning over the past couple of weeks), Denies odynophagia and Reports vomiting (once recently) Denies difficulty urinating, Denies dysuria, Denies nocturia and Denies urinary frequency Musc Denies back pain and Denies neck pain Skin/Breast Denies rash Neuro Denies dizziness and Reports headache(s) (on and off) Psych Reports anxiety (increased stress lately) Endo Denies fatigue and Denies palpitations Physical exam (Primary Care) Vital Signs: Last Vital Signs Pulse 93 03/10/25 15:54 BP 110/78 03/10/25 15:54 Pulse Ox 97 03/10/25 15:54 Oxygen Delivery Method Room Air 03/10/25 15:54 BMI result Body Mass Index 28.4 Tobacco/Smoking Status: Tobacco use Status Tobacco use date assessed 03/10/25 03/10/25 16:04 Patient Tobacco Use Status Former Tobacco user 03/10/25 16:04 e-Cigarette/Vaping Use Never Used 03/10/25 16:04 PHQ-9: PHQ-9 Score PHQ-9: Total score 4 03/10/25 16:13 Depression Screening Interpretation: Positive Depression Screening Follow-up: Follow-up Visit Requested Thrive Assessment: Date of Thrive Assessment Date Thrive assessed 03/10/25 03/10/25 16:04 Currently or been in a relationship where the following occur: No concerns reported Const General: no acute distress and alert HENMT Ears: TM's normal bilaterally and EAC's normal Throat: Yes posterior oropharynx normal and Yes tonsils normal (no TP congestion) Eyes Direct Ophthalmoscopy: No photophobia Neck Neck: Yes supple and No lymphadenopathy Thyroid: Thyroid normal Resp Auscultation: clear to auscultation bilaterally, no rales and no wheezes Cardio Rate: regular rate Rhythm: regular rhythm Heart sounds: no murmurs GI Palpation (GI): Soft to palpation and nontender Auscultation: normal bowel sounds General: Yes no CVA tenderness Back/Spine/Pelvis Back: no CVA tenderness Thoracic/Lumbar Spine: No lumbar spinal tenderness Skin Rashes: no rashes Extrem General: Yes no clubbing, cyanosis or edema Coding Level of Care Code Est Pt Level 4 (01860) Diagnoses Frequent headaches R51.9 Epistaxis R04.0 Onycholysis of toenail L60.1 Anxiety F41.9 Overweight (BMI 25.0-29.9) E66.3 Additional Codes PHQ-9 - 12262 - PHQ-9 Billing: Yes ([id number]) Assessment & Plan Assessment & Plan (1) Frequent headaches: Code(s): R51.9 - Headache, unspecified Category: Medical Plan: Will send him for a head CT for further evaluation (2) Epistaxis: Code(s): R04.0 - Epistaxis Category: Medical Plan: Will send patient for some labs CATIA for further evaluation He is being sent for a head CT to look into his recent recurrent headaches with epistaxis - unclear at this time if both of them are actually related or not (3) Onycholysis of toenail: Code(s): L60.1 - Onycholysis Category: Medical Plan: Will refer him to podiatry for further management (4) Anxiety: Code(s): F41.9 - Anxiety disorder, unspecified Category: Medical Plan: Per request, will refer him to psychiatry for counseling (5) Overweight (BMI 25.0-29.9): Code(s): E66.3 - Overweight Category: Medical Plan: Reinforced diet/exercise as tolerated/lose weight Plan To return as scheduled in June 2025 for his annual physical examination Orders: Orders CT head/brain wo IV con 03/10/25 R51.9 - Headache, unspecified Comprehensive Met. Panel 03/10/25 R04.0 - Epistaxis, R51.9 - Headache, unspecified Erythrocyte Sedimentation Rate 03/10/25 R04.0 - Epistaxis, R51.9 - Headache, unspecified Complete Blood Count Auto Diff 03/10/25 R04.0 - Epistaxis, R51.9 - Headache, unspecified Referrals Psychiatry Referral F41.9 - Anxiety disorder, unspecified, F43.9 - Reaction to severe stress, unspecified Podiatry Referral L60.1 - Onycholysis
--- OUTSIDE RECORDS SUMMARY | 2025-03-10 22:13 | XMS_ITS | Data Portability ---
Author Organization [facility] [address] Address [address] [place] [address] Assessment No assessment recorded. Plan of Treatment Reminders Order Date Submit Date Provider Last Modified By Organization Details Last Modified Time Details Appointments None recorded. Lab None recorded. Referral None recorded. Procedures None recorded. Surgeries None recorded. Imaging None recorded. Medication Orders cephalexin 500 mg capsule 2023 024 [facility] #[id number], [address] [place], [address], 4 10:51:39 Patient TargetsNo targets recorded. Patient InstructionsNo instructions recorded. Reason for Referral None Reported. Problems Name Problem SNOMED Code Status Onset Date Resolution Date Notes Provider Name and Address Organization Details Recorded Time Cellulitis of left forearm 3219634836625 9106 Active 2023 Huy Moise NP [address] [facility] [place], [address] , [facility] 4 10:51:04 Problem Notes None recorded. Medical [...] mass index (BMI) Body weight Oxygen saturation Heart rate Body temperature Systolic And Diastolic Provider Name and Address Organization Details Last Updated DateTime 4 187.96 cm 0.6 kg/m2 2267.96 g 100 % 68 /min 97.9 [degF] 127/77 mm[Hg] Kathy Jaramillo PA - [facility] 10:49:09 Social History Question Answer Notes LastModified by Organizat ion Details LastModified Time Which Illicit Or Recreational Drugs Have You [...] Relationship Status? Single Information not available 08/06/2023 Have You Recently Traveled Abroad? No Information not available 08/06/2023 Sex: Unknown Functional Status Question Answer Note LastModified by Organizat ion Details LastModified Time Do you use any illicit or recreational drugs? Yes Information not available 08/06/2023 Do you or have you ever used any other forms of tobacco or nicotine? No Information not available 08/06/2023 Are you currently employed? Yes Information not available 08/06/2023 Mental Status None recorded. Family History Nothing Reported. Medical History No medical history recorded. Past Encounters Encounter ID Performer Location Encounter Start Date Encounter Closed Date Diagnosis/Indication Diagnosis SNOMED-CT Code Diagnosis ICD10 Code Diagnosis IMO Codes Diagnosis Note [id number] [facility] [address] [address] 06/19/2020 08:18:18 06/19/2020 10:21:26 [id number] [facility] [address] [address] 08/19/2016 18:30:01 08/19/2016 18:48:25 [id number] Huy Moise [facility] [address] 08/06/2023 10:24:21 08/06/2023 13:18:04 Cellulitis of left forearm [id number] L03.114 Based on your presentati on and [...] that are tender Thank you for using [facility] today, please don't hesitate to call or reach out to us if you have any questions or concerns. Health Concerns Section Related Observation LastModified by Organization Detai ls LastModified Time None Recorded Concern Status LastModified by Organization Details LastModified Time None Recorded Advance Directives Directive None Recorded Payers Insurance Date Sequence Insurance Name Policy Number Policy Hopson Covered Member ID Hopson Member ID Guarantor Name 08/06/2023 1 [facility] Sherpa[facility] [id number] Juan Luis Mayes [id number] Juan Luis Mayes 08/06/2023 1 [facility] [id number] Haresh Mayes [id number] Juan Luis Mayes Notes Date Note Type Note Provider Name and Address Organization Details Recorded Time 08/06/2023 text/html [facility] eported by [facility] UCFor quality, patient reportspainful,erythema tous,raised, andwarm. For severity, patient reportsmoderateandworse robert. For alleviating factors, patient reportsnothing gives relief. For symptoms, patient reportsswellingbut reportsno fever,no nausea, andno vomiting. For location, patient reportsleft armand__ elbow(small 2x 2 cm indurated area anterior of left forearm . developing cellulitis . insect bite vs abscess vs folliculitis.). For duration, patient reports2 days. For onset, patient reportsgradual onset. For aggravating factors, patient reportsnothing makes it worse. Huy Moise NP [address] [place], [address], [place] - [facility] 08/06/2023 10:52:05
== END 2025-03-10 16:29 | disposition home or self-care (01) ==
LOC: HO.HMCH 15:48
PROVIDERS: PCP Internal Medicine; Visit Provider Internal Medicine
DX: R51.9 Headache, unspecified (principal); R04.0 Epistaxis; L60.1 Onycholysis; F41.9 Anxiety disorder, unspecified; E66.3 Overweight; Z68.28 Body mass index [BMI] 28.0-28.9, adult

== ENCOUNTER → 2025-03-10 15:47 | Outpatient (BNVA) | payer OTHER, SELFPAY | PROVIDERS: PCP Internal Medicine; Visit Provider Internal Medicine | DX: R51.9 Headache, unspecified (principal); R04.0 Epistaxis; L60.1 Onycholysis; F41.9 Anxiety disorder, unspecified; E66.3 Overweight; Z68.28 Body mass index [BMI] 28.0-28.9, adult; Z71.3 Dietary counseling and surveillance | CPT/HCPCS: 96127; 99212 ==